=== PATIENT | female | born 1990 | race Caucasian/White ===

== ENCOUNTER 2022-10-20 11:20 | Outpatient (CLI) | payer OTHER | END 2022-10-20 12:14 | disposition home or self-care (01) | LOC: NST 11:20 | PROVIDERS: ATTEND Obstetrics & Gynecology | DX: Z34.82 Encounter for supervision of other normal pregnancy, second trimester (principal) ==

== ENCOUNTER 2023-01-12 16:06 | Inpatient (IN) | payer OTHER ==
[~2023-01-12] VITALS: Ht 152.4 cm; Wt 74.8 kg
[2023-01-12] MEDS ORDERED: PRENATAL TABLE1 EAC1 PO (16:54)
[2023-01-12] MEDS ORDERED: IRON236 MG PO (16:55)
== END 2023-01-13 16:46 | disposition home or self-care (01) | DRG 833 ==
LOC: LDR 16:06
PROVIDERS: ADMIT Obstetrics & Gynecology Gynecology; ATTEND Obstetrics & Gynecology Gynecology
PROC: 4A1HXCZ Monitoring of Products of Conception, Cardiac Rate, External Approach (ICD-10-PCS; principal; 2023-01-12)
DX: O16.3 Unspecified maternal hypertension, third trimester (principal); Z3A.37 37 weeks gestation of pregnancy; Z20.822 Contact with and (suspected) exposure to COVID-19

== ENCOUNTER 2023-01-16 10:51 | Outpatient (CLI) | payer OTHER ==
[~2023-01-16 10:51] MED LIST: IRON236 MG PO; PRENATAL TABLE1 EAC1 PO
== END 2023-01-16 12:11 | disposition home or self-care (01) ==
LOC: NST 10:51
PROVIDERS: ATTEND Obstetrics & Gynecology Gynecology
DX: Z34.83 Encounter for supervision of other normal pregnancy, third trimester (principal)

== ENCOUNTER 2023-01-19 09:22 | Inpatient (IN) | payer OTHER ==
[~2023-01-19] VITALS: Ht 152.4 cm; Wt 2.7 kg
[2023-01-19] MEDS ORDERED: CLARITIN5 MG PO (14:29)
== END 2023-01-24 15:26 | disposition home or self-care (01) | DRG 785 ==
LOC: O/R 01-21 07:00 → OB/GYN 01-21 07:00
PROVIDERS: ADMIT Obstetrics & Gynecology Maternal & Fetal Medicine; ATTEND Obstetrics & Gynecology Maternal & Fetal Medicine
PROC: 0UB70ZZ Excision of Bilateral Fallopian Tubes, Open Approach (ICD-10-PCS; 2023-01-21)
PROC: 4A1HXCZ Monitoring of Products of Conception, Cardiac Rate, External Approach (ICD-10-PCS; 2023-01-21)
PROC: 10D00Z1 Extraction of Products of Conception, Low, Open Approach (ICD-10-PCS; principal; 2023-01-21 07:00)
DX: O34.211 Maternal care for low transverse scar from previous cesarean delivery (principal); Z3A.38 38 weeks gestation of pregnancy; Z37.0 Single live birth; Z20.822 Contact with and (suspected) exposure to COVID-19; Z30.2 Encounter for sterilization